=== PATIENT | female | born 1990 | race American Indian/Alaskan Native ===

== ENCOUNTER 2017-11-08 15:02 | Emergency (ER) | payer MEDICAID, OTHER ==
[2017-11-08 15:02] VITALS: BMI 33.3
[2017-11-08 15:07] VITALS: O2SAT 96
--- NOTE | 2017-11-08 15:41 | C.PDOC ---
History Of Present Illness 26 year old female presents to the emergency department with complaints of persistent sinus congestion with rhinorrhea for the last month. Patient also complains of occasional productive cough and states that she is a smoker but denies prior history of asthma. Patient states she was evaluated at [facility] for the same symptoms three weeks ago stating that "they said the x-ray was normal". Patient states that was discharged with Claritin and Flonase stating that "it helped". Patient denies other associated symptoms. persist SINUS BHAVYA, RHINORRHEA X 1 MO. +OCC PROD COUGH. +SMOKER, DENIES HO ASTHMA. PS BERNARDA @ [facility] FOR SAME 3 WKS AGO, "THEY SAID THE XRAY WAS NORMAL ", DC W CLARITIN AND FLONASE "IT HELPED". DENIES OTHER ASSOC SX EXAM HEENT THROAT CLEAR; NOSE CLEAR; NO SINUS TEND, BHAVYA LUNGS CTA B/L NO W/R/R REMAINDER NEG Time Seen by Provider: 11/08/17 15:21 Chief Complaint (Nursing): ENT Problem History Per: Patient History/Exam Limitations: no limitations Onset/Duration Of Symptoms: Other (1 month) Current Symptoms Are (Timing): Still Present Location Of Pain: Sinus/es Associated Symptoms: Sinus Drainage, Nasal Congestion. denies: Fever, Chills, Sore Throat, Cough, Sputum Past Medical History Reviewed: Historical Data, Nursing Documentation, Vital Signs Vital Signs: Last Vital Signs Temp 99.0 F 11/08/17 15:05 Pulse 96 H 11/08/17 15:05 Resp 19 11/08/17 15:05 BP 112/76 11/08/17 15:05 Pulse Ox 96 11/08/17 15:43 - Medical History PMH: Anemia, Bronchitis Surgical History: Cholecystectomy Family History: States: No Known Family Hx - Social History Hx Tobacco Use: No Hx Alcohol Use: No Hx Substance Use: No - Immunization History Hx Tetanus Toxoid Vaccination: No Hx Influenza Vaccination: No Hx Pneumococcal Vaccination: No Review Of Systems Except As Marked, All Systems Reviewed And Found Negative. Constitutional: Negative for: Fever, Chills ENT: Positive for: Nose Discharge, Nose Congestion Respiratory: Negative for: Cough Gastrointestinal: Negative for: Nausea Physical Exam - Physical Exam Appears: Non-toxic, No Acute Distress Skin: Warm, Dry Head: Atraumatic, Normacephalic Eye(s): bilateral: Normal Inspection Nose: Normal, No Discharge, No Tenderness, No Other (congestion) Oral Mucosa: Moist Tongue: Normal Appearing Throat: Normal, No Erythema, No Exudate Neck: Normal Chest: Symmetrical Cardiovascular: Rhythm Regular, No Murmur Respiratory: Normal Breath Sounds, No Rales, No Rhonchi, No Wheezing Extremity: Normal ROM Neurological/Psych: Oriented x3, Normal Speech, Normal Cognition ED Course And Treatment O2 Sat by Pulse Oximetry: 96 (RA) Pulse Ox Interpretation: Normal - Radiology CXR: Interpreted by Me CXR Interpretation: Yes: No Acute Disease Progress Note: Plan: CXR Two Views Disposition Counseled Patient/Family Regarding: Studies Performed, Diagnosis, Need For Followup, Rx Given, Smoking Cessation - Disposition Referrals: [facility] [Outside] [facility] [Outside] Pritesh Galarza MD [Staff Provider] - Disposition: HOME/ ROUTINE Disposition Time: 15:40 Condition: GOOD Prescriptions: Fluticasone Propionate [Flonase] 2 spr LEOPOLDO DAILY #1 bottle Loratadine [Claritin] 10 mg PO DAILY #30 tab Promethazine/Dextromethorphan [Promethazine-Dm Syrup] 5 ml PO Q6 PRN #1 syrup PRN Reason: Cough Instructions: Sinusitis, Adult (DC) Forms: [facility] (German) - Clinical Impression Clinical Impression: Allergic sinusitis, Chronic cough - Scribe Statement The provider has reviewed the documentation as recorded by the Scribe (Daniel Crowell) Provider Attestation: All medical record entries made by the Scribe were at my direction and personally dictated by me. I have reviewed the chart and agree that the record accurately reflects my personal performance of the history, physical exam, medical decision making, and the department course for this patient. I have also personally directed, reviewed, and agree with the discharge instructions and disposition.
--- NOTE | 2017-11-08 15:52 | RAD ---
HISTORY: cough COMPARISON: No prior. TECHNIQUE: Chest PA and lateral FINDINGS: LUNGS: No active pulmonary disease. PLEURA: No significant pleural effusion identified. No pneumothorax apparent. CARDIOVASCULAR: Normal. OSSEOUS STRUCTURES: No significant abnormalities. VISUALIZED UPPER ABDOMEN: Normal. OTHER FINDINGS: None. IMPRESSION: No active disease.
[2017-11-08 16:14] VITALS: BP 105/69; PULSE 62; RESP 18; TEMP 98.1
== END 2017-11-08 15:40 | disposition home or self-care (01) ==
LOC: C.ER 15:02
DX: J30.9 Allergic rhinitis, unspecified (principal); R05 Cough

== ENCOUNTER 2018-03-15 15:48 | Emergency (ER) | payer OTHER ==
[2018-03-15 15:49] VITALS: BMI 33.3
[2018-03-15 15:59] VITALS: BP 109/72; PULSE 90; RESP 18; TEMP 98.8; O2SAT 99
--- NOTE | 2018-03-15 16:42 | C.PDOC ---
History Of Present Illness 27 y/o female presents to the ER complaining of left 4th toe pain and swelling which began today. Patient states that she was at work when the child dropped an ornament on her foot. Patient denies having weakness and numbness. Time Seen by Provider: 03/15/18 16:01 Chief Complaint (Nursing): Lower Extremity Problem/Injury History Per: Patient History/Exam Limitations: no limitations Onset/Duration Of Symptoms: Hrs Current Symptoms Are (Timing): Still Present Severity: Moderate Past Medical History Reviewed: Historical Data, Nursing Documentation, Vital Signs Vital Signs: Last Vital Signs Temp 98.8 F 03/15/18 15:56 Pulse 90 03/15/18 15:56 Resp 18 03/15/18 15:56 BP 109/72 03/15/18 15:56 Pulse Ox 99 03/15/18 15:56 - Medical History PMH: Anemia, Bronchitis Surgical History: Cholecystectomy Family History: States: No Known Family Hx - Social History Hx Tobacco Use: No Hx Alcohol Use: No Hx Substance Use: No - Immunization History Hx Tetanus Toxoid Vaccination: No Hx Influenza Vaccination: No Hx Pneumococcal Vaccination: No Review Of Systems Except As Marked, All Systems Reviewed And Found Negative. Musculoskeletal: Positive for: Foot Pain (left 4th toe pain and swelling) Neurological: Negative for: Weakness, Numbness Physical Exam - Physical Exam Appears: Non-toxic, No Acute Distress Skin: Normal Color, Warm, Dry Head: Atraumatic, Normacephalic Eye(s): bilateral: Normal Inspection Nose: Normal Oral Mucosa: Moist Neck: Normal ROM, Supple Chest: Symmetrical Cardiovascular: Rhythm Regular Extremity: Normal ROM, Tenderness (tenderness to left 4th toe), Capillary Refill (< 2 seconds), No Deformity, Swelling (swelling to left 4th toe) Pulses: Left Dorsalis Pedis: Normal, Right Dorsalis Pedis: Normal Neurological/Psych: Oriented x3, Normal Speech ED Course And Treatment O2 Sat by Pulse Oximetry: 99 (RA) Pulse Ox Interpretation: Normal - Other Rad X-Ray-Left Foot X-Ray: Viewed By Me, Read By Radiologist Interpretation: Date of service: 03/15/2018. Indication: injury, pain and swelling. Left 4th digit (toe) foot radiographs. Comparison: None available. Findings: Subtle linear hypodensity/cortical abnormality involving the distal 4th digit, possibly nondisplaced fracture. Soft tissue swelling. The remainder the visualized osseous structures appear intact. No evidence of radiopaque foreign body. Impression: Subtle linear hypodensity/cortical abnormality involving the distal 4th digit, possibly nondisplaced fracture. Soft tissue swelling. Correlate clinically. Medical Decision Making Medical Decision Making: Plan: --X-Ray- Left 4th Toe --Tylenol PO Updates: Patient has been discharged and instructed to follow up with PMD in 2 days. Disposition - Disposition Referrals: [facility] [Outside] [facility] [Outside] Disposition: HOME/ ROUTINE Disposition Time: 16:52 Condition: STABLE Additional Instructions: Follow up with the medical doctor within 1-2 days, Return if worsened. 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 - Scribe Statement The provider has reviewed the documentation as recorded by the Madison Teresa Provider Attestation All medical record entries made by the Madison were at my direction and personally dictated by me. I have reviewed the chart and agree that the record accurately reflects my personal performance of the history, physical exam, medical decision making, and the department course for this patient. I have also personally directed, reviewed, and agree with the discharge instructions and disposition.
--- NOTE | 2018-03-15 17:20 | RAD ---
Date of service: 03/15/2018 Indication: injury, pain and swelling Left 4th digit (toe) foot radiographs Comparison: None available Findings: Subtle linear hypodensity/cortical abnormality involving the distal 4th digit, possibly nondisplaced fracture. Soft tissue swelling. The remainder the visualized osseous structures appear intact. No evidence of radiopaque foreign body. Impression: Subtle linear hypodensity/cortical abnormality involving the distal 4th digit, possibly nondisplaced fracture. Soft tissue swelling. Correlate clinically.
== END 2018-03-15 17:15 | disposition home or self-care (01) ==
LOC: C.ER 15:48
DX: S92.532A Displaced fracture of distal phalanx of left lesser toe(s), initial encounter for closed fracture (principal); W22.8XXA Striking against or struck by other objects, initial encounter; Y92.89 Other specified places as the place of occurrence of the external cause; Y99.0 Civilian activity done for income or pay

== ENCOUNTER 2018-03-17 18:27 | Emergency (ER) | payer OTHER ==
[2018-03-17 18:29] VITALS: BMI 33.3
--- NOTE | 2018-03-17 19:54 | C.PDOC ---
History Of Present Illness 27 y/o female returns to the ED for re-evaluation of left foot pain. Patient was seen here 2 days ago and diagnosed with toe fracture. Patient admits she misunderstood instructions and came to the ED for 2 day follow-up instead of the clinic. Requesting work note for light duty. Otherwise she denies any new pain, change in sensation, or other complaint. Time Seen by Provider: 03/17/18 19:19 Chief Complaint (Nursing): Lower Extremity Problem/Injury History Per: Patient History/Exam Limitations: no limitations Onset/Duration Of Symptoms: Days Current Symptoms Are (Timing): Still Present Past Medical History Reviewed: Historical Data, Nursing Documentation, Vital Signs Vital Signs: Last Vital Signs Temp 97.4 F L 03/17/18 18:35 Pulse 87 03/17/18 18:35 Resp 18 03/17/18 18:35 BP 115/73 03/17/18 18:35 Pulse Ox 97 03/17/18 18:35 - Medical History PMH: Anemia, Bronchitis Surgical History: Cholecystectomy Family History: States: Unknown Family Hx - Social History Hx Tobacco Use: No Hx Alcohol Use: No Hx Substance Use: No - Immunization History Hx Tetanus Toxoid Vaccination: No Hx Influenza Vaccination: No Hx Pneumococcal Vaccination: No Review Of Systems Constitutional: Negative for: Fever Musculoskeletal: Positive for: Foot Pain Neurological: Negative for: Weakness, Numbness, Incoordination Physical Exam - Physical Exam Appears: Non-toxic, No Acute Distress Skin: Warm, Dry, No Rash Head: Atraumatic, Normacephalic Eye(s): bilateral: Normal Inspection Chest: Symmetrical Respiratory: No Accessory Muscle Use Extremity: Capillary Refill (less than 2sec), No Deformity, Swelling (Left 4th toe appears mildly swollen, and tender to palpation) Pulses: Left Dorsalis Pedis: Normal, Right Dorsalis Pedis: Normal Neurological/Psych: Oriented x3, Normal Speech ED Course And Treatment O2 Sat by Pulse Oximetry: 97 (RA) Pulse Ox Interpretation: Normal Medical Decision Making Medical Decision Making: Plan: Pt is stable for discharge home. No new trauma or injuries. Pt educated on the importance of follow up with the clinic. Pt is understanding of and agreeable to discharge plan. Disposition - Disposition Referrals: [facility] [Outside] Disposition: HOME/ ROUTINE Disposition Time: 19:43 Condition: GOOD Additional Instructions: Wear hard soled shoe for comfort. Tylenol or Motrin for pain. Follow up in podiatry- call clinic for appointment; podiatry clinic on Mondays. Keep toe patricia taped for comfort. Instructions: Toe Fracture (DC) Forms: General Discharge Instructions, [facility] (Iranian), Work Excuse - Clinical Impression Clinical Impression: Fracture of toe of left foot - PA / STUDENT RECRUITER / Resident Statement MD/DO has reviewed & agrees with the documentation as recorded. - Scribe Statement The provider has reviewed the documentation as recorded by the Scribe (Rosalie Ko) All medical record entries made by the Scribe were at my direction and personally dictated by me. I have reviewed the chart and agree that the record accurately reflects my personal performance of the history, physical exam, medical decision making, and the department course for this patient. I have also personally directed, reviewed, and agree with the discharge instructions and disposition.
[2018-03-17 20:09] VITALS: BP 112/58; PULSE 90; RESP 17; TEMP 98.4
[2018-03-18 02:46] VITALS: O2SAT 97
== END 2018-03-17 20:08 | disposition home or self-care (01) ==
LOC: C.ER 18:27
DX: S92.502G Displaced unspecified fracture of left lesser toe(s), subsequent encounter for fracture with delayed healing (principal); X58.XXXD Exposure to other specified factors, subsequent encounter